=== PATIENT | male | born 1945 | race Caucasian/White ===

== ENCOUNTER 2018-02-03 20:27 | Emergency (ER) | payer OTHER, MEDICAID ==
[~2018-02-03] VITALS: Ht 160 cm; Wt 60.0 kg
[2018-02-03 20:44] VITALS: BP 171/79
--- NOTE | 2018-02-03 20:48 | NUR ---
TO LOBBY A/W BED, SARWAT WIGGINS NOTED
--- NOTE | 2018-02-03 21:00 | NUR ---
PT TAKEN TO BED 10
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
[2018-02-03] MEDS ORDERED: TETRACAINE HCL/PF 0.5% OPTH 4 ML BTL OP ONE (21:15)
[2018-02-03] MEDS ORDERED: FLUORESCEIN OPTH STRIP 0.6 MG OP ONE (21:15)
[2018-02-03] MEDS ORDERED: TETRACAINE HCL/PF 0.5% OPTH 4 ML BTL ONE (21:19)
[2018-02-03] MEDS ORDERED: FLUORESCEIN OPTH STRIP 0.6 MG ONE (21:19)
[2018-02-03 22:00] VITALS: BP 144/69
--- NOTE | 2018-02-03 22:00 | NUR ---
Patient discharged with v/s stable. Written and verbal after care instructions given and explained. Patient alert, oriented and verbalized understanding of instructions. Ambulatory with steady gait. All questions addressed prior to discharge. ID band removed. Patient advised to follow up with EYE DOCTOR IN 2-3 DAYS OR SOONER OR RETURN TO ER IF CONDITION WORSES. Rx of ERYTHROMYCIN given. Patient educated on indication of medication including possible reaction and side effects. Opportunity to ask questions provided and answered.
== END 2018-02-03 22:00 | disposition home or self-care (01) ==
LOC: MED 20:27
DX: S05.02XA Injury of conjunctiva and corneal abrasion without foreign body, left eye, initial encounter (principal); R03.0 Elevated blood-pressure reading, without diagnosis of hypertension; X58.XXXA Exposure to other specified factors, initial encounter; Y93.89 Activity, other specified; Y92.89 Other specified places as the place of occurrence of the external cause; Y99.8 Other external cause status
CPT/HCPCS: 99283

== ENCOUNTER 2020-10-24 19:40 | Emergency (ER) | payer OTHER ==
[~2020-10-24] VITALS: Ht 167.6 cm; Wt 61.2 kg
[2020-10-24 19:43] VITALS: BP 170/90
--- NOTE | 2020-10-24 19:43 | NUR ---
TO BED AMBULATORY
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
--- NOTE | 2020-10-24 19:56 | NUR ---
Dr. García examining patient.
--- NOTE | 2020-10-24 20:26 | NUR ---
PT TAKEN TO CT VIA GURNEY BY [employer].
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
--- NOTE | 2020-10-24 20:38 | NUR ---
PT RETURNED TO BED FROM CT VIA WHEELCHAIR.
--- NOTE | 2020-10-24 20:44 | NUR ---
PT WAS FOUND AWAKE IN SEMI-KOVACS'S POSITION IN BED. PT STATES 1/10 HEAD AND NECK PAIN. PT DENIES OTHER MEDICAL COMPLAINTS. PT WAS PROVIDED A BLANKET. BED LOCKED IN LOWEST POSITION WITH 2 SIDE RAILS UP FOR SAFETY. WILL CONTINUE TO MONITOR.
[2020-10-24] MEDS ORDERED: TRAM50TA1 PO (21:03)
[2020-10-24 21:23] VITALS: BP 159/80
== END 2020-10-24 21:23 | disposition home or self-care (01) ==
LOC: MED 19:40
DX: S09.90XA Unspecified injury of head, initial encounter (principal); M54.2 Cervicalgia; R42 Dizziness and giddiness; Z79.899 Other long term (current) drug therapy; Z98.890 Other specified postprocedural states; V87.8XXA Person injured in other specified noncollision transport accidents involving motor vehicle (traffic), initial encounter; Y93.89 Activity, other specified; Y92.89 Other specified places as the place of occurrence of the external cause; Y99.8 Other external cause status
CPT/HCPCS: 70450; 72125; 99285

== ENCOUNTER 2020-11-13 09:53 | Emergency (ER) | payer OTHER ==
[~2020-11-13] VITALS: Ht 160 cm; Wt 61.2 kg
[~2020-11-13 09:53] MED LIST: TRAM50TA1 PO
--- NOTE | 2020-11-13 10:00 | NUR ---
PT TAKEN TO BED 11 VIA W/C.
[2020-11-13 10:07] VITALS: BP 175/86
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
--- NOTE | 2020-11-13 10:34 | NUR ---
Dr. Norton at pt bedside for further evaluation.
[2020-11-13] MEDS ORDERED: NACL 0.9% 1,000 ML IV ONE (10:45)
[2020-11-13] MEDS ORDERED: KETOROLAC 30 MG/ML VIAL IVP ONE (10:45)
--- NOTE | 2020-11-13 10:49 | NUR ---
Pt up to bedside urinal for UA collection.
--- NOTE | 2020-11-13 10:58 | NUR ---
Collected BERNADETTE LIM, gave to grinding and polishing laborer.
--- NOTE | 2020-11-13 11:00 | NUR ---
Pt taken to CT via rvivienne.
--- NOTE | 2020-11-13 11:14 | NUR ---
PT BROUGHT BACK TO ER BED 11 VIA ISABEL.
--- NOTE | 2020-11-13 11:26 | NUR ---
COMMISSIONED SECURITY OFFICER AT PT BEDSIDE.
--- NOTE | 2020-11-13 11:27 | NUR ---
Per Dr. Norton, hold toradol IVP. Continue with NS IV bolus.
[2020-11-13 11:33] LABS: BILIRUBIN,URINE NEGATIVE (NEGATIVE); COLOR,URINE YELLOW (YELLOW); LEUKOCYTE ESTERASE ,URINE 2+ (NEGATIVE); NITRITE, URINE NEGATIVE (NEGATIVE); UGLUCOSE NEGATIVE (NEGATIVE)
[2020-11-13] MEDS ORDERED: MORPHINE SULFATE 2 MG/ML SYR IVP ONE (11:40)
[2020-11-13 11:41] LABS: APPEARANCE,URINE SLIGHTLY HAZY (CLEAR)
[2020-11-13 11:45] LABS: BLOOD, URINE 1+ (NEGATIVE); RBC,URINE 0-5 /HPF (0-5)
[2020-11-13 11:46] LABS: BASOPHILS % (AUTO) 0.3 % (0.0-2.0); EOSINOPHILS % (AUTO) 0.2 % (0.0-4.0); HEMATOCRIT 35.7 % (36-52); HEMOGLOBIN 12.3 g/dL (12.0-18.0); LYMPHOCYTES # (AUTO) 0.6 K/uL (2.0-11.5); LYMPHOCYTES % (AUTO) 6.9 % (20.5-51.1); MEAN CORPUSCULAR HEMOGLOBIN 31 pg (27-31); MEAN CORPUSCULAR HGB CONC 35 g/dL (33-37); MEAN CORPUSCULAR VOLUME 90.7 fL (80-94); MONOCYTES # (AUTO) 0.9 K/uL (0.8-1.0); MONOCYTES % (AUTO) 9.7 % (1.7-9.3); NEUTROPHILS # (AUTO) 7.4 K/uL (1.8-7.7); NEUTROPHILS % (AUTO) 82.9 % (42.2-75.2); PLATELET COUNT (AUTO) 224 K/uL (140-450); RED BLOOD CELL COUNT(AUTO) 3.94 MIL/uL (4.20-6.10); RED CELL DISTRIBUTION WIDTH 13.5 % (11.6-13.7); WHITE BLOOD COUNT (AUTO) 8.9 K/uL (4.8-10.8)
[2020-11-13] MEDS ORDERED: methylPREDNISolone SS 125 MG/2 ML VIAL ONE (11:47)
[2020-11-13 12:00] LABS: PROTHROMBIN TIME 9.9 secs (10.8-13.4)
--- NOTE | 2020-11-13 12:00 | NUR ---
SOLU MEDROL GIVEN IVP INTO LEFT AC.
[2020-11-13 12:01] LABS: ALBUMIN 3.3 g/dL (3.4-5.0); ASPARTATE AMINOTRANSFERASE 34 U/L (15-37); CARBON DIOXIDE 24.1 mmol/L (21-32); CHLORIDE 96 mmol/L (98-107); GLUCOSE 114 mg/dL (74-106); POTASSIUM 4.1 mmol/L (3.5-5.1); SODIUM SERUM 129 mmol/L (136-145); TOTAL BILIRUBIN 0.6 mg/dL (0.0-1.0); UREA NITROGEN, BLOOD 9 mg/dL (7-18)
--- NOTE | 2020-11-13 12:09 | NUR ---
REPORT GIVEN TO ED AT [facility] AT THIS TIME
--- NOTE | 2020-11-13 12:20 | NUR ---
Pt up at bedside assisted to use urinal.
[2020-11-13 12:39] VITALS: BP 176/80
--- NOTE | 2020-11-13 12:40 | NUR ---
Patient to be transferred to [facility]. Is being transferred due to higher level of care. Receiving facility has accepting physician and available space. ER physician has signed transfer form. Patient or responsible republican has agreed to transfer and signed form. Patient belongings inventoried and will be sent with patient. Copy of nursing notes, lab reports, EKG, Physicians Orders and X-rays to be sent with patient. Report called to ED, RN at receiving facility. [facility] ambulance service has been called for transfer. ETA is 20minutes.
== END 2020-11-13 12:40 | disposition short-term general hospital (02) ==
LOC: MED 09:53
DX: I62.03 Nontraumatic chronic subdural hemorrhage (principal); N39.0 Urinary tract infection, site not specified; I10 Essential (primary) hypertension; Z20.822 Contact with and (suspected) exposure to COVID-19
CPT/HCPCS: 36415; 70450; 71045; 80053; 81001; 84484; 85025; 85610; 85730; 86886; 86900; 86901; 87086; 87426; 93005; 96361; 96374; 99291; J2270; J2930; J7030; J1885